=== PATIENT | female | born 1985 | race Caucasian/White ===

== ENCOUNTER 2017-02-15 22:56 | Emergency (ER) | payer MEDICAID ==
[~2017-02-15] VITALS: Ht 160 cm; Wt 63.3 kg
[~2017-02-15 22:56] MED LIST: ALBU1AER INH; IBUP800T23 PO; NAPR500 PO; ROBA750T3 PO
[2017-02-15 23:06] VITALS: BP 116/83; PULSE 95; RESP 18; TEMP 99; O2SAT 96
[2017-02-15 23:18] VITALS: BP 116/83; PULSE 95; RESP 18; O2SAT 99
[2017-02-15 23:22] VITALS: BP 109/65; PULSE 81; RESP 18; O2SAT 96
--- NOTE | 2017-02-16 01:12 | PD ---
HPI Chief Complaint: Facial Pain or Swelling Time Seen by Provider: 00:56 Travel History International Travel<30 days: No Contact w/Intl Traveler<30days: No Traveled to known affect area: No History of Present Illness HPI The patient is a 31-year-old female that states she has a "migraine" for 2 weeks. Most of her pain is on the right forehead and sinuses. The patient noted swelling on her right eyelid on the right side of her forehead last night. She denies any trauma the face or possibility of an insect bite. The patient has been self-medicating herself with [id number] Excedrin Migraine. She denies any history of drug abuse. The patient does smoke one half pack a day of cigarettes. PFSH Past Medical History Hx Anticoagulant Therapy: No Autoimmune Disease: No Blood Disorders: No Anxiety: Yes Depression: Yes (newly dx) Cancer: No Cardiovascular Problems: No Chemotherapy: No Cerebrovascular Accident: No Diabetes: No Diminished Hearing: No Endocrine: No Gastrointestinal Disorders: Yes GERD: Yes Glaucoma: No Genitourinary: No Hiatal Hernia: No Immune Disorder: No Kidney Stones: No Musculoskeletal: No Neurologic: No Psychiatric: No Reproductive: No Respiratory: No Immunizations Current: No Radiation Therapy: No Renal Failure: No Thyroid Disease: No Ulcer: Yes Tetanus Vaccination: Unknown Influenza Vaccination: No ?: Not LMP: Currently on cycle 02/15/2017 : 3 Para: 2 Miscarriage: 1 Past Surgical History Abdominal Surgery: No AICD: No Appendectomy: No Arteriovenous Shunt: No Cardiac Surgery: No Cholecystectomy: No Ear Surgery: No Endocrine Surgery: No Eye Surgery: No Genitourinary Surgery: No Gynecologic Surgery: No Insulin Pump: No Joint Replacement: No Neurologic Surgery: No Oral Surgery: No Pacemaker: No Thoracic Surgery: No Tonsillectomy: Yes Other Surgery: Yes (SKIN LEFT SHOULDER) Social History Alcohol Use: Yes (OCCASIONAL) Tobacco Use: Yes (1 PPD) Substance Use: No Allergies-Medications (Allergen,Severity, Reaction): Coded Allergies: No Known Allergies (Verified , 06/30/16) Reported Meds & Prescriptions Reported Meds & Active Scripts Active Augmentin (Amoxicillin-Clavulanate) 875-125 mg Tab 875 Mg PO BID not for use in CrCl <30 ml/min. Naprosyn (Naproxen) 500 Mg Tab 500 Mg PO BID 5 Days Robaxin-750 (Methocarbamol) 750 Mg Tab 750 Mg PO QID Ibuprofen 800 Mg Tab 800 Mg PO Q6H PRN Proair Hfa (Albuterol Sulfate) 8.5 Gm Aero 2 Puff INH Q4-6H PRN * SHAKE WELL BEFORE USE * Review of Systems Except as stated in HPI: all other systems reviewed are Neg Physical Exam Narrative GENERAL: The patient is alert, oriented 3 in moderate apparent distress with her right forehead pain. Her vital signs show temperature of 99 but otherwise normal. SKIN: Warm and dry. There is puffiness over the right frontal area and swelling of the right upper lid. No proptosis is present, this appears to be periorbital swelling. HEAD: Atraumatic. Normocephalic. EYES: Pupils equal and round. No scleral icterus. No injection or drainage. ENT: No nasal bleeding or discharge. Mucous membranes pink and moist. There is frontal NECK: Trachea midline. No JVD. There is some slightly enlarged and slightly tender lymph nodes along the anterior cervical chain on the right. CARDIOVASCULAR: Regular rate and rhythm. No murmur appreciated. RESPIRATORY: No accessory muscle use. Clear to auscultation. Breath sounds equal bilaterally. GASTROINTESTINAL: Abdomen soft, non-tender, nondistended. Hepatic and splenic margins not palpable. MUSCULOSKELETAL: No obvious deformities. No clubbing. No cyanosis. No edema. NEUROLOGICAL: Awake and alert. No obvious cranial nerve deficits. Motor grossly within normal limits. Normal speech. PSYCHIATRIC: Appropriate mood and affect; insight and judgment normal. Data Data Last Documented VS Vital Signs Date Time Temp Pulse Resp B/P Pulse Ox O2 Delivery O2 Flow Rate FiO2 02/15/17 23:22 81 18 109/65 96 Room Air 02/15/17 23:[address] Sinuses W/O Iv Contrast (02/16/17 ) Beta Hcg (Quant/Titer) (02/16/17 01:00) Complete Blood Count With Diff (02/16/17 01:00) Comprehensive Metabolic Panel (02/16/17 01:00) Urinalysis - C+S If Indicated (02/16/17 01:00) Iv Access Insert/Monitor (02/16/17 01:00) Lactic Acid Sepsis Protocol (02/16/17 01:00) Blood Culture (02/16/17 01:00) Ed Urine Pregnancytest Poc (02/16/17 01:39) Morphine Inj (Morphine Inj) (02/16/17 01:45) Ondansetron Inj (Zofran Inj) (02/16/17 01:45) Ceftriaxone Inj (Rocephin Inj) (02/16/17 03:15) Labs Laboratory Tests Test 02/16/17 02/16/17 01:20 01:30 Urine Color YELLOW Urine Turbidity CLEAR Urine pH 5.5 Urine Specific [place] 1.015 Urine Protein NEG mg/dL Urine Glucose (UA) NEG mg/dL Urine Ketones NEG mg/dL Urine Occult Blood NEG Urine Nitrite NEG Urine Bilirubin NEG Urine Leukocyte Esterase NEG Urine RBC 0-2 /hpf Urine WBC 0-2 /hpf Urine Squamous Epithelial 0-5 /hpf Cells Urine Bacteria NONE /hpf Microscopic Urinalysis Comment CULT NOT INDICATED White Blood Count 8.9 TH/MM3 Red Blood Count 4.17 MIL/MM3 Hemoglobin 12.7 GM/DL Hematocrit 38.6 % Mean Corpuscular Volume 92.5 FL Mean Corpuscular Hemoglobin 30.5 PG Mean Corpuscular Hemoglobin 32.9 % Concent Red Cell Distribution Width 13.7 % Platelet Count 316 TH/MM3 Mean Platelet Volume 8.1 FL Neutrophils (%) (Auto) 60.1 % Lymphocytes (%) (Auto) 30.7 % Monocytes (%) (Auto) 5.1 % Eosinophils (%) (Auto) 2.9 % Basophils (%) (Auto) 1.2 % Neutrophils # (Auto) 5.3 TH/MM3 Lymphocytes # (Auto) 2.7 TH/MM3 Monocytes # (Auto) 0.5 TH/MM3 Eosinophils # (Auto) 0.3 TH/MM3 Basophils # (Auto) 0.1 TH/MM3 CBC Comment DIFF FINAL Differential Comment Sodium Level 140 MEQ/L Potassium Level 3.9 MEQ/L Chloride Level 105 MEQ/L Carbon Dioxide Level 27.5 MEQ/L Anion Gap 8 MEQ/L Blood Urea Nitrogen 9 MG/DL Creatinine 0.68 MG/DL Estimat Glomerular Filtration 101 ML/MIN Rate Random Glucose 87 MG/DL Lactic Acid Level 0.9 mmol/L Calcium Level 8.9 MG/DL Total Bilirubin 0.2 MG/DL Aspartate Amino Transf 21 U/L (AST/SGOT) Alanine Aminotransferase 30 U/L (ALT/SGPT) Alkaline Phosphatase 80 U/L Total Protein 7.5 GM/DL Albumin 3.3 GM/DL Human Chorionic Gonadotropin, LESS THAN 1 Quant MIU/ML MDM Medical Decision Making Medical Screen Exam Complete: Yes Emergency Medical Condition: Yes Medical Record Reviewed: Yes Interpretation(s) The urine is normal and culture is not indicated. The complete metabolic profile shows an albumin of 3.3 but is otherwise normal. Lactic acid is normal. The beta-hCG is less than 1. The CBC is normal. Differential Diagnosis Acute sinusitis, sepsis, dental infection, ear infection, cellulitis Narrative Course There is no laboratory evidence for sepsis. There is no clinical evidence for a dental infection or ear infection. The patient has acute ethmoid sinusitis with the right sided opacity location which is complete on the ethmoid cells. Plan: The patient be given Rocephin here and a prescription for Augmentin. If she gets worse or not better, she should return to the emergency department for reevaluation. Diagnosis Primary Impression: Acute ethmoidal sinusitis Additional Instructions: In about 5 days you should get better from this. If you are no better after 5 days you should return to the emergency department for reevaluation. It would be better however if you would follow-up with your primary care physician next week. Scripts Amoxicillin-Clavulanate (Augmentin)875-125 mg [id number] Mg PO BID #28 TAB Ref 0 not for use in CrCl <30 ml/min. Prov:Isidoro Clark MD 02/16/17 Disposition: DISCHARGE HOME Condition: Stable Isidoro Clark MD Feb 16, 2017 01:11
[2017-02-16 01:41] LABS: BLOOD, URINE NEG (NEG); GLUCOSE,URINE NEG (NEG); KETONE, URINE NEG (NEG); NITRITE,URINE NEG (NEG); PH, URINE 5.5 (5.0-8.5)
[2017-02-16 01:44] LABS: AUTOMATED NEUTROPHIL # 5.3 TH/MM3 (1.8-7.7); BASOPHIL # 0.1 TH/MM3 (0-0.2); BASOPHIL % 1.2 % (0.0-2.0); EOSINOPHIL # 0.3 TH/MM3 (0-0.4); EOSINOPHIL % 2.9 % (0.0-4.0); HEMATOCRIT 38.6 % (35.0-46.0); LYMPH % 30.7 % (9.0-44.0); LYMPHOCYTE # 2.7 TH/MM3 (1.0-4.8); MEAN CELL VOLUME 92.5 FL (80.0-100.0); MEAN CORPUSCULAR HEMOGLOBIN 30.5 PG (27.0-34.0); MEAN CORPUSCULAR HGB CONC 32.9 % (32.0-36.0); MONO % 5.1 % (0.0-8.0); NEUT % 60.1 % (16.0-70.0); PLATELET COUNT 316 TH/MM3 (150-450); RED BLOOD COUNT 4.17 MIL/MM3 (4.00-5.30); RED CELL DISTRIBUTION WIDTH 13.7 % (11.6-17.2); WHITE BLOOD COUNT 8.9 TH/MM3 (4.0-11.0)
[2017-02-16 01:45] LABS: HEMO FLAGS DIFF FINAL
[2017-02-16] MEDS ORDERED: ONDANSETRON HCL 4 MG/2 ML VIAL IV ONE (01:45)
[2017-02-16] MEDS ORDERED: MORPHINE SULFATE 4 MG/ML INJ IV PUSH ONE (01:45)
[2017-02-16 01:51] LABS: COMMENT (UR) CULT NOT INDICATED; CULTURE IF INDICATED CULT NOT INDICATED; RBC, URINE 0-2 /hpf (0-3); SQUAMOUS EPITHELIAL CELL URINE 0-5 /hpf (0-5); URINE COLOR YELLOW (YELLW/STRAW); WBC, URINE 0-2 /hpf (0-5)
[2017-02-16 01:52] LABS: CHLORIDE 105 MEQ/L (98-107); POTASSIUM 3.9 MEQ/L (3.5-5.1); SODIUM (NA) 140 MEQ/L (136-145)
[2017-02-16 01:56] LABS: ANION GAP 8 MEQ/L (5-15); BICARBONATE 27.5 MEQ/L (21.0-32.0); BLOOD UREA NITROGEN 9 MG/DL (7-18)
[2017-02-16 01:59] LABS: ALT (GPT) 30 U/L (10-53); AST (GOT) 21 U/L (15-37); GLOMERULAR FILTRATION RATE 101 ML/MIN (>89)
[2017-02-16 02:01] LABS: TOTAL BILIRUBIN ADULT 0.2 MG/DL (0.2-1.0)
[2017-02-16 02:02] LABS: ALKALINE PHOSPHATASE 80 U/L (45-117)
[2017-02-16 02:04] LABS: BETA HCG QUANT LESS THAN 1 MIU/ML (0-5)
--- NOTE | 2017-02-16 02:56 | RADHPO ---
EXAM DATE/TIME: 02/16/2017 01:57 [facility] COMPARISON: No previous studies available for comparison. INDICATIONS : Right frontal and sinus pain for two weeks. Right eye swelling for one day. RADIATION DOSE: 25.29 CTDIvol (mGy) MEDICAL HISTORY : None SURGICAL HISTORY : None. ENCOUNTER: Initial ACUITY: 2 weeks PAIN SCORE: 7/10 LOCATION: Right facial TECHNIQUE: Volumetric scanning of the paranasal sinuses was performed. Using automated exposure control and adj ustment of the mA and/or kV according to patient size, radiation dose was kept as low as reasonably a chievable to obtain optimal diagnostic quality images. FINDINGS: MAXILLARY SINUSES: Normal. No significant mucosal thickening or fluid. Infundibula are patent. No anomalous inferior orbital ethmoid (Johnny) air cells. ETHMOID SINUSES: There is complete opacification of 2 anterior ethmoid air cells on the right. The remaining ethmoid a ir cells are clear. SPHENOID SINUSES: Normal. No significant mucosal thickening or fluid. Sphenoethmoidal recesses are patent. No bony d ehiscence. FRONTAL SINUSES: Normal. No significant mucosal thickening or fluid. Frontal recesses are patent. No anomalous fron leandra air cells. NASAL FOSSA: Normal. No septal perforation or deviation. No derek bullosa or paradoxical turbinates are identifie d. OTHER: There is periorbital and supraorbital soft tissue swelling on the right. This is without changes invo lving the retrocrural fat lobe. CONCLUSION: 1. Periorbital soft tissue swelling on the right. 2. Other than complete opacification of 2 small anterior ethmoid air cells on the right the sinuses a re clear. Pablo Mejias Jr., MD on February 16, 2017 at 2:52 Board Certified Radiologist. This report was verified electronically.
[2017-02-16] MEDS ORDERED: AUGM875T PO (03:09)
[2017-02-16] MEDS ORDERED: cefTRIAXone INJ 2,000 MG in SODIUM CHLORIDE 0.9% INJ 100 ML IV ONE (03:15)
[2017-02-16 04:36] VITALS: BP 132/77
== END 2017-02-16 04:38 | disposition home or self-care (01) ==
LOC: PHED 22:56
DX: J01.20 Acute ethmoidal sinusitis, unspecified (principal); F17.210 Nicotine dependence, cigarettes, uncomplicated
CPT/HCPCS: 70486; 80053; 81001; 83605; 84702; 84703; 85025; 87040; 96365; 96375; 99285; J0696; J2270; J2405

== ENCOUNTER 2017-12-04 18:20 | Emergency (ER) | payer MEDICAID ==
[~2017-12-04 18:20] MED LIST changes: +AUGM875T PO
[2017-12-04 19:16] VITALS: BP 133/60; PULSE 81; RESP 20; TEMP 97.8; O2SAT 99
[2017-12-04 19:30] LABS: BLOOD, URINE SMALL (NEG); GLUCOSE,URINE NEG (NEG); KETONE, URINE TRACE mg/dL (NEG); NITRITE,URINE POS (NEG); URINE LEUKOCYTE ESTERASE NEG (NEG)
[2017-12-04 19:35] LABS: BILIRUBIN, URINE NEG (NEG)
[2017-12-04 19:36] LABS: BACTERIA, URINE MANY /hpf; MUCUS URINE MOD /lpf (OCC); RBC, URINE 0-3 /hpf (0-3); SQUAMOUS EPITHELIAL CELL URINE > 8 /hpf (0-5); URINE COLOR YELLOW (YELLW/STRAW)
[2017-12-05] MEDS ORDERED: CEPH-460 PO (05:07)
--- NOTE | 2017-12-05 05:09 | PD ---
HPI Chief Complaint: Flank/Kidney Pain Time Seen by Provider: 22:00 Travel History International Travel<30 days: No Contact w/Intl Traveler<30days: No Traveled to known affect area: No History of Present Illness HPI Patient left without being examined by this MMikaylaD. I did not see the patient she eloped from the exam room prior to my evaluation PFSH Past Medical History Hx Anticoagulant Therapy: No Autoimmune Disease: No Blood Disorders: No Anxiety: Yes Depression: Yes Cardiovascular Problems: No Chemotherapy: No Cerebrovascular Accident: No Diabetes: No Diminished Hearing: No Endocrine: No Gastrointestinal Disorders: Yes GERD: Yes Glaucoma: No Genitourinary: No Hepatitis: Yes Hiatal Hernia: No Immune Disorder: No Kidney Stones: No Musculoskeletal: No Neurologic: No Psychiatric: No Reproductive: No Respiratory: No Immunizations Current: No Radiation Therapy: No Renal Failure: No Thyroid Disease: No Ulcer: Yes Tetanus Vaccination: Unknown Influenza Vaccination: No ?: LMP: " DONT GET THEM ANY MORE " : 4 Para: 2 Miscarriage: 1 Past Surgical History Abdominal Surgery: No Appendectomy: No Arteriovenous Shunt: No Cardiac Surgery: No Cholecystectomy: No Ear Surgery: No Endocrine Surgery: No Eye Surgery: No Genitourinary Surgery: No Gynecologic Surgery: No Insulin Pump: No Joint Replacement: No Neurologic Surgery: No Oral Surgery: No Pacemaker: No Thoracic Surgery: No Tonsillectomy: Yes Other Surgery: Yes (SKIN LEFT SHOULDER) Social History Alcohol Use: Yes (OCCASIONAL) Tobacco Use: Yes (1 PPD) Substance Use: No Allergies-Medications (Allergen,Severity, Reaction): Coded Allergies: No Known Allergies (Verified , 06/30/16) Reported Meds & Prescriptions Reported Meds & Active Scripts Active Keflex (Cephalexin) 500 Mg Cap 500 Mg PO Q8H Augmentin (Amoxicillin-Clavulanate) 875-125 mg Tab 875 Mg PO BID not for use in CrCl <30 ml/min. Naprosyn (Naproxen) 500 Mg Tab 500 Mg PO BID 5 Days Robaxin-750 (Methocarbamol) 750 Mg Tab 750 Mg PO QID Ibuprofen 800 Mg Tab 800 Mg PO Q6H PRN Proair Hfa (Albuterol Sulfate) 8.5 Gm Aero 2 Puff INH Q4-6H PRN * SHAKE WELL BEFORE USE * Review of Systems ROS Limitations: Other: (patient eloped from the exam room I did not examine her) Physical Exam Narrative I did not examine the patient she was not in the exam room when I entered she eloped from the exam room without notifying us Data Data Last Documented VS Vital Signs Date Time Temp Pulse Resp B/P (MAP) Pulse Ox O2 Delivery O2 Flow Rate FiO2 12/04/17 22:06 20 12/04/17 19:16 97.8 81 133/60 (84) 99 Orders Orders Urinalysis - C+S If Indicated (12/04/17 18:39) Ed Urine Pregnancytest Poc (12/04/17 18:39) Urine Culture (12/04/17 19:20) Labs Laboratory Tests Test 12/04/17 19:20 Urine Color YELLOW Urine Turbidity CLOUDY Urine pH 6.0 Urine Specific [place] 1.030 Urine Protein NEG mg/dL Urine Glucose (UA) NEG mg/dL Urine Ketones TRACE mg/dL Urine Occult Blood SMALL Urine Nitrite POS Urine Bilirubin NEG Urine Leukocyte Esterase NEG Urine RBC 0-3 /hpf Urine WBC 9-14 /hpf Urine Squamous Epithelial Cells > 8 /hpf Urine Bacteria MANY /hpf Urine Mucus MOD /lpf Microscopic Urinalysis Comment CULTURE INDICATED MDM Medical Decision Making Medical Screen Exam Complete: Yes Emergency Medical Condition: Yes Differential Diagnosis Unable to establish patient's differential she eloped from the exam room prior to my exam or history or history of present illness Narrative Course Patient eloped from the exam room while I was running a critical care cardiac code in the next room Diagnosis Primary Impression: LWBS Patient Instructions: General Instructions Departure Forms: Tests/Procedures Scripts Cephalexin (Keflex) 500 Mg Cap 500 MG PO Q8H for Infection, #21 CAP 0 Refills Prov: Maxim Clark MD 12/05/17 Disposition: 07 LEFT WITHOUT BEING SEEN Condition: Stable Maxim Clark MD Dec 05, 2017 05:09
== END 2017-12-04 22:25 | disposition left against medical advice (07) ==
LOC: PHED 18:20
DX: R10.9 Unspecified abdominal pain (principal); R82.71 Bacteriuria
CPT/HCPCS: 81001; 84703; 87077; 87086; 87186; 99281

== ENCOUNTER 2018-01-26 14:20 | Emergency (ER) | payer MEDICAID ==
[~2018-01-26] VITALS: Ht 162.6 cm; Wt 64.6 kg
[~2018-01-26 14:20] MED LIST changes: +CEPH-460 PO
[2018-01-26 14:39] VITALS: BP 109/55; PULSE 92; RESP 16; TEMP 98.3; O2SAT 96
[2018-01-26] MEDS ORDERED: SODIUM CHLOR 0.9% 1000 ML INJ 1,000 ML IV ONE (15:15)
[2018-01-26] MEDS ORDERED: SODIUM CHLORIDE 0.9% FLUSH 10 ML FLUSH IV FLUSH PRN (15:15)
[2018-01-26 15:17] LABS: BILIRUBIN, URINE NEG (NEG); BLOOD, URINE NEG (NEG); GLUCOSE,URINE NEG (NEG); KETONE, URINE TRACE mg/dL (NEG); NITRITE,URINE NEG (NEG); URINE COLOR YELLOW (YELLW/STRAW); URINE LEUKOCYTE ESTERASE NEG (NEG)
[2018-01-26 15:31] LABS: MUCUS URINE MANY /lpf (OCC)
--- NOTE | 2018-01-26 15:31 | PD ---
HPI Chief Complaint: Related Problem Time Seen by Provider: 14:49 Travel History International Travel<30 days: No Contact w/Intl Traveler<30days: No Traveled to known affect area: No History of Present Illness HPI Patient is a 32-year-old female presents emergency department for evaluation of abdominal cramping in the setting of of unknown gestational age. Patient states she was told she was when she was here in November but left without being seen. She states she does not normally have regular periods and does not know how far along she is. She has been taking her vitamins, has not established with an AUTOMOTIVE TIRE WORKER yet but has an appointment for next week. She continues to smoke during this . She states she is cutting down still having smoked. She thinks her pain is due to stress because her recently moved out. No nausea no vomiting no vaginal bleeding no vaginal discharge. She states the abdominal pain is typically lower quadrants but radiates throughout her entire abdomen. Pain for the past few days, constant, context and associated signs and symptoms as above PFSH Past Medical History Hx Anticoagulant Therapy: No Autoimmune Disease: No Blood Disorders: No Anxiety: Yes Depression: Yes Cardiovascular Problems: No Chemotherapy: No Cerebrovascular Accident: No Diabetes: No Diminished Hearing: No Endocrine: No Gastrointestinal Disorders: Yes GERD: Yes Glaucoma: No Genitourinary: No Hepatitis: Yes Hiatal Hernia: No Immune Disorder: No Kidney Stones: No Musculoskeletal: No Neurologic: No Psychiatric: No Reproductive: No Respiratory: No Immunizations Current: No Radiation Therapy: No Renal Failure: No Thyroid Disease: No Ulcer: Yes Tetanus Vaccination: > 5 Years Influenza Vaccination: No ?: LMP: unknown : 4 Para: 2 Miscarriage: 1 Past Surgical History Abdominal Surgery: No Appendectomy: No Arteriovenous Shunt: No Cardiac Surgery: No Cholecystectomy: No Ear Surgery: No Endocrine Surgery: No Eye Surgery: No Genitourinary Surgery: No Gynecologic Surgery: No Insulin Pump: No Joint Replacement: No Neurologic Surgery: No Oral Surgery: No Pacemaker: No Thoracic Surgery: No Tonsillectomy: Yes Other Surgery: Yes (SKIN LEFT SHOULDER- cyst removed) Social History Alcohol Use: Yes (OCCASIONAL) Tobacco Use: Yes (1 PPD) Substance Use: No Allergies-Medications (Allergen,Severity, Reaction): Coded Allergies: No Known Allergies (Verified Adverse Reaction, Unknown, 01/26/18) Reported Meds & Prescriptions Reported Meds & Active Scripts Active Macrobid (Nitrofurantoin Monohydrate Macrocrystals) 100 Mg Capsule 100 Mg PO BID 7 Days Metrogel Topical (Metronidazole Topical) 1 % Gel 1 Applic TOPICAL DAILY 7 Days Review of Systems Except as stated in HPI: all other systems reviewed are Neg Physical Exam Narrative GENERAL: Well-developed well-nourished in no obvious distress SKIN: Focused skin assessment warm/dry. HEAD: Atraumatic. Normocephalic. EYES: Pupils equal and round. No scleral icterus. No injection or drainage. ENT: No nasal bleeding or discharge. Mucous membranes pink and moist. NECK: Trachea midline. No JVD. CARDIOVASCULAR: Regular rate and rhythm. No murmur appreciated. RESPIRATORY: No accessory muscle use. Clear to auscultation. Breath sounds equal bilaterally. GASTROINTESTINAL: Abdomen soft, non-tender, gravid. No rebound no percussive tenderness. Hepatic and splenic margins not palpable. GENITOURINARY: Exam performed with female nurse steel crane operator present all times, scant discharge which is frothy and white, cervix has lumpy bumpy appearance to it but certainly is not strawberry cervix. OS IS closed, no lesions seen. MUSCULOSKELETAL: No obvious deformities. No clubbing. No cyanosis. No edema. NEUROLOGICAL: Awake and alert. No obvious cranial nerve deficits. Motor grossly within normal limits. Normal speech. PSYCHIATRIC: Appropriate mood and affect; insight and judgment normal. Data Data Last Documented VS Vital Signs Date Time Temp Pulse Resp B/P (MAP) Pulse Ox O2 Delivery O2 Flow Rate FiO2 01/26/18 14:39 98.3 92 16 109/55 (73) 96 Orders Orders Urinalysis - C+S If Indicated (01/26/18 14:50) Ed Urine Pregnancytest Poc (01/26/18 14:50) Ecg Monitoring (01/26/18 15:14) Sodium Chloride 0.9% Flush (Ns Flush) (01/26/18 15:15) Ed Poc Ultrasound (01/26/18 15:14) Sodium Chlor 0.9% 1000 Ml Inj (Ns 1000 M (01/26/18 15:15) Wet Prep Profile (01/26/18 15:14) Gc And Chlamydia Pcr (01/26/18 15:14) Acetaminophen (Tylenol) (01/26/18 15:45) Labs Laboratory Tests Test 01/26/18 15:00 01/26/18 15:38 Urine Color YELLOW Urine Turbidity SL CLOUDY Urine pH 5.0 Urine Specific [place] GREATER/EQUAL 1.030 Urine Protein NEG mg/dL Urine Glucose (UA) NEG mg/dL Urine Ketones TRACE mg/dL Urine Occult Blood NEG Urine Nitrite NEG Urine Bilirubin NEG Urine Urobilinogen 1.0 MG/DL Urine Leukocyte Esterase NEG Urine RBC 4-9 /hpf Urine WBC 6-8 /hpf Urine Squamous Epithelial Cells > 8 /hpf Urine Bacteria FEW /hpf Urine Mucus MANY /lpf Microscopic Urinalysis Comment CULT NOT INDICATED Clue Cells (Wet Prep) PRESENT Vaginal Trichomonas (Wet Prep) NONE SEEN Vaginal Yeast (Wet Prep) NONE SEEN MDM Medical Decision Making Medical Screen Exam Complete: Yes Emergency Medical Condition: Yes Differential Diagnosis Intrauterine , ectopic , round ligament pain, BV, CV, UTI, acute abdomen highly unlikely. Narrative Course Shortly after doing the patient's ultrasound she eloped from the emergency department without the results of her UA or her wet prep. Both of which were positive. I had nursing call her and instructed to return for scripts. They were able to reach her and she stated that she would come back. Otherwise on my assessment the patient is stable for outpatient workup. She was counseled during the exam to stop smoking as it has many adverse health effects for both her and the baby including premature , lung disease, failure to thrive in the , stroke heart attack and cancer in both her and the . Initially I did put him for some blood work for the patient but after examination of her abdomen and confirmation of intrauterine I do not see the utility in this patient with benign abdomen Procedures Procedure Narrative Bedside ultrasound: Bedside ultrasound of the uterus transabdominally shows a single intrauterine approximately 16 weeks 0 days gestational age by crown-rump length and biparietal diameter. Positive motion, heart tones by M-mode to 160 bpm. No gross deformity Diagnosis Primary Impression: UTI (urinary tract infection) Additional Impressions: Bacterial vaginosis Tobacco smoking affecting Med/Other Pt SpecificInfo: Prescription(s) given Scripts Nitrofurantoin Monohydrate Macrocrystals (Macrobid) 100 Mg Capsule 100 MG PO BID for Infection for 7 Days, #14 CAP 0 Refills Prov: Candido Sanches MD 3/4/18 Metronidazole Topical (Metrogel Topical) 1 % Gel 1 APPLIC TOPICAL DAILY for Infection for 7 Days, #1 TUBE 0 Refills Prov: Candido Sanches MD 01/26/18 Disposition: 01 DISCHARGE HOME (Eloped) Condition: Stable Candido Sanches MD Jan 26, 2018 15:31
[2018-01-26 15:33] LABS: BACTERIA, URINE FEW /hpf; SQUAMOUS EPITHELIAL CELL URINE > 8 /hpf (0-5)
[2018-01-26] MEDS ORDERED: ACETAMINOPHEN 325 MG TAB PO ONE (15:45)
[2018-01-26] MEDS ORDERED: METR1GEL TOPICAL (16:28)
[2018-01-26] MEDS ORDERED: MACR100C2 PO (16:28)
== END 2018-01-26 16:00 | disposition home or self-care (01) ==
LOC: PHED 14:20
DX: O23.42 Unspecified infection of urinary tract in pregnancy, second trimester (principal); O23.92 Unspecified genitourinary tract infection in pregnancy, second trimester; F17.210 Nicotine dependence, cigarettes, uncomplicated; Z3A.16 16 weeks gestation of pregnancy
CPT/HCPCS: 81001; 84703; 87210; 87491; 87591; 99283

== ENCOUNTER 2018-02-04 18:18 | Emergency (ER) | payer MEDICAID ==
[~2018-02-04] VITALS: Ht 162.6 cm; Wt 64.0 kg
[~2018-02-04 18:18] MED LIST changes: -ALBU1AER INH; -AUGM875T PO; -CEPH-460 PO; -IBUP800T23 PO; +MACR100C2 PO; +METR1GEL TOPICAL; -NAPR500 PO; -ROBA750T3 PO
[2018-02-04 18:23] VITALS: BP 104/58; PULSE 86; RESP 16; TEMP 98.5; O2SAT 95
[2018-02-04] MEDS ORDERED: LIDOCAINE HCL 1% 30 ML VIAL INFIL ONE (20:00)
[2018-02-04] MEDS ORDERED: LIDOCAINE HCL 1% 20 ML VIAL INFIL ONE (20:15)
--- NOTE | 2018-02-04 20:20 | PD ---
HPI Chief Complaint: Laceration/Skin Injury Time Seen by Provider: 19:51 Travel History International Travel<30 days: No Contact w/Intl Traveler<30days: No Traveled to known affect area: No History of Present Illness HPI 32-year-old female that presents to the ED for evaluation of laceration to her right fifth digit. Per patient this happened today. Per patient happened about 2 hours ago. Per patient she actually cut herself with a piece of glass that broke off. Able to move it fully. Denies any numbness, tilling, weakness. No prior injuries to this finger. No foreign body sensation. Pain per patient is 6 out of 10. Some bleeding noted. Up-to-date with vaccinations. Of note she is . PFSH Past Medical History Hx Anticoagulant Therapy: No Autoimmune Disease: No Blood Disorders: No Anxiety: Yes Depression: Yes Cardiovascular Problems: No Chemotherapy: No Cerebrovascular Accident: No Diabetes: No Diminished Hearing: No Endocrine: No Gastrointestinal Disorders: Yes GERD: Yes Glaucoma: No Genitourinary: No Hepatitis: Yes Hiatal Hernia: No Immune Disorder: No Kidney Stones: No Musculoskeletal: No Neurologic: No Psychiatric: No Reproductive: No Respiratory: No Immunizations Current: No Radiation Therapy: No Renal Failure: No Thyroid Disease: No Ulcer: Yes Tetanus Vaccination: Unknown Influenza Vaccination: No ?: : 4 Para: 2 Miscarriage: 1 Past Surgical History Abdominal Surgery: No Appendectomy: No Arteriovenous Shunt: No Cardiac Surgery: No Cholecystectomy: No Ear Surgery: No Endocrine Surgery: No Eye Surgery: No Genitourinary Surgery: No Gynecologic Surgery: No Insulin Pump: No Joint Replacement: No Neurologic Surgery: No Oral Surgery: No Pacemaker: No Thoracic Surgery: No Tonsillectomy: Yes Other Surgery: Yes (SKIN LEFT SHOULDER- cyst removed) Social History Alcohol Use: Yes (OCCASIONAL) Tobacco Use: Yes (1 PPD) Substance Use: No Allergies-Medications (Allergen,Severity, Reaction): Coded Allergies: No Known Allergies (Verified Adverse Reaction, Unknown, 02/04/18) Reported Meds & Prescriptions Reported Meds & Active Scripts Active Macrobid (Nitrofurantoin Monohydrate Macrocrystals) 100 Mg Capsule 100 Mg PO BID 7 Days Metrogel Topical (Metronidazole Topical) 1 % Gel 1 Applic TOPICAL DAILY 7 Days Review of Systems Except as stated in HPI: all other systems reviewed are Neg Physical Exam Narrative GENERAL: SKIN: Warm and dry. HEAD: Atraumatic. Normocephalic. EYES: Pupils equal and round. No scleral icterus. No injection or drainage. ENT: No nasal bleeding or discharge. Mucous membranes pink and moist. NECK: Trachea midline. No JVD. CARDIOVASCULAR: Regular rate and rhythm. RESPIRATORY: No accessory muscle use. Clear to auscultation. Breath sounds equal bilaterally. GASTROINTESTINAL: Abdomen soft, non-tender, nondistended. Hepatic and splenic margins not palpable. MUSCULOSKELETAL: Extremities without clubbing, cyanosis, or edema. No obvious deformities. Full range of motion of all digits of the right hand. Patient does have a superficial laceration of the right fifth digit. About 1 cm semicircular. Slightly tender to touch. Some bleeding noted. No foreign body noted. Laceration is to the lateral aspect of the right fifth digit. Around the MIP area but not on the joint itself. NEUROLOGICAL: Awake and alert. No obvious cranial nerve deficits. Motor grossly within normal limits. Five out of 5 muscle strength in the arms and legs. Normal speech. PSYCHIATRIC: Appropriate mood and affect; insight and judgment normal. Data Data Last Documented VS Vital Signs Date Time Temp Pulse Resp B/P (MAP) Pulse Ox O2 Delivery O2 Flow Rate FiO2 02/04/18 18:23 98.5 86 16 104/58 (73) 95 Orders Orders Lidocaine 1% Inj (Xylocaine 1% Inj) (02/04/18 20:15) Ed Discharge Order (02/04/18 20:18) [facility] Medical Decision Making Medical Screen Exam Complete: Yes Emergency Medical Condition: Yes Medical Record Reviewed: Yes Differential Diagnosis laceration vs skin abrasion vs skin tear Narrative Course 32-year-old female that presents to the ED for evaluation of laceration. Patient was properly examined and was found to have signs and symptoms consistent appears to be laceration to the right fifth digit. After explained procedure to the patient and she agreed to it laceration was repaired as stated in procedure note. Patient was told to get sutures removed in 14 days. Follow with PCP. Wound care was endorsed. See ED worsening symptoms. Procedures Procedure Narrative LACERATION LOCATION: right 5th digit LENGTH: 1 cm NUMBER OF STITCHES/AMBER: 5 sutures REPAIR: The area of the laceration was prepped with Betadine and sterilely draped. The laceration was infiltrated with 1% Xylocaine. The wound was copiously irrigated and explored without evidence of foreign body, tendon injury or neurovascular injury. The wound was closed using 4-0 Prolene. This was a 1 layer repair. A sterile dressing was applied. The patient was advised to keep the dressing clean and dry. Patient tolerated the procedure well. Diagnosis Primary Impression: Laceration of finger Qualified Codes: S61.216A - Laceration without foreign body of right little finger without damage to nail, initial encounter Patient Instructions: General Instructions Additional Instructions: Wound care daily with soap and water. You can apply bandaid if needed. Neosporyn or OTC antibiotic ointment to area as needed twice a day for at least 2 weeks to help with scarring and prevent infection. Meoderma OTC for scarring if needed. Avoid sun exposure for 2 months as the sun could make scar darker and more noticeable. Get sutures removed in 14 days. See ED if worst. Med/Other Pt SpecificInfo: Prescription(s) given Disposition: 01 DISCHARGE HOME Condition: Stable Sumit Edwards Feb 04, 2018 20:20
== END 2018-02-04 20:42 | disposition home or self-care (01) ==
LOC: PHED 18:18 → PHEFT 20:42
DX: S61.216A Laceration without foreign body of right little finger without damage to nail, initial encounter (principal); K21.9 Gastro-esophageal reflux disease without esophagitis; F17.210 Nicotine dependence, cigarettes, uncomplicated; W25.XXXA Contact with sharp glass, initial encounter
CPT/HCPCS: 12001

== ENCOUNTER 2018-03-20 16:57 | Emergency (ER) | payer MEDICAID ==
[2018-03-20 16:59] VITALS: BP 114/60; PULSE 94; RESP 20; TEMP 99.1; O2SAT 95
--- NOTE | 2018-03-20 17:21 | PD ---
HPI Chief Complaint: Housekeeper Problem/Complaint Time Seen by Provider: 17:19 Travel History International Travel<30 days: No Contact w/Intl Traveler<30days: No Traveled to known affect area: No History of Present Illness HPI 33-year-old female patient who is 23 weeks , presents to the ER today for several days history of lower abdominal discomfort which she currently rates at a 5 out of 10. She states that she has been having urinary frequency, has been nauseous but denies any recent vomiting. She denies any fevers or any other issues. She is supposed to get her official ultrasound next week. Modifying Factors: None Associated Signs & Symptoms:lower abdominal discomfort, urinary symptoms Risk Factors: PFSH Past Medical History Hx Anticoagulant Therapy: No Autoimmune Disease: No Blood Disorders: No Anxiety: Yes Depression: Yes Cardiovascular Problems: No Chemotherapy: No Cerebrovascular Accident: No Diabetes: No Diminished Hearing: No Endocrine: No Gastrointestinal Disorders: Yes GERD: Yes Glaucoma: No Genitourinary: No Hepatitis: Yes Hiatal Hernia: No Immune Disorder: No Kidney Stones: No Musculoskeletal: No Neurologic: No Psychiatric: No Reproductive: No Respiratory: No Immunizations Current: No Radiation Therapy: No Renal Failure: No Thyroid Disease: No Ulcer: Yes ?: : 4 Para: 2 Miscarriage: 1 Past Surgical History Abdominal Surgery: No Appendectomy: No Arteriovenous Shunt: No Cardiac Surgery: No Cholecystectomy: No Ear Surgery: No Endocrine Surgery: No Eye Surgery: No Genitourinary Surgery: No Gynecologic Surgery: No Insulin Pump: No Joint Replacement: No Neurologic Surgery: No Oral Surgery: No Pacemaker: No Thoracic Surgery: No Tonsillectomy: Yes Other Surgery: Yes (SKIN LEFT SHOULDER- cyst removed) Social History Alcohol Use: Yes (OCCASIONAL) Tobacco Use: Yes (1 PPD) Substance Use: No Allergies-Medications (Allergen,Severity, Reaction): Coded Allergies: No Known Allergies (Verified Adverse Reaction, Unknown, 03/20/18) Reported Meds & Prescriptions Reported Meds & Active Scripts Active Review of Systems Except as stated in HPI: all other systems reviewed are Neg Physical Exam Narrative GENERAL: Well-developed middle-aged f gravid emale patient currently in mild distress. Awake and oriented 3. SKIN: Focused skin assessment warm/dry. HEAD: Atraumatic. Normocephalic. EYES: Pupils equal and round. No scleral icterus. No injection or drainage. ENT: No nasal bleeding or discharge. Mucous membranes pink and moist. NECK: Trachea midline. No JVD. CARDIOVASCULAR: Regular rate and rhythm. No murmur appreciated. RESPIRATORY: No accessory muscle use. Clear to auscultation. Breath sounds equal bilaterally. GASTROINTESTINAL: Abdomen soft, gravid, uterine fundus at about the umbilicus level, non-tender, nondistended. Hepatic and splenic margins not palpable. MUSCULOSKELETAL: No obvious deformities. No clubbing. No cyanosis. No edema. NEUROLOGICAL: Awake and alert. No obvious cranial nerve deficits. Motor grossly within normal limits. Normal speech. PSYCHIATRIC: Appropriate mood and affect; insight and judgment normal. Data Data Last Documented VS Vital Signs Date Time Temp Pulse Resp B/P (MAP) Pulse Ox O2 Delivery O2 Flow Rate FiO2 03/20/18 16:59 99.1 94 20 114/60 (78) 95 Orders Orders Urinalysis - C+S If Indicated (03/20/18 17:11) Ed Discharge Order (03/20/18 17:59) Labs Laboratory Tests Test 03/20/18 17:20 Urine Color YELLOW Urine Turbidity CLEAR Urine pH 8.0 Urine Specific Grant 1.015 Urine Protein NEG mg/dL Urine Glucose (UA) NEG mg/dL Urine Ketones NEG mg/dL Urine Occult Blood NEG Urine Nitrite NEG Urine Bilirubin NEG Urine Urobilinogen 1.0 MG/DL Urine Leukocyte Esterase TRACE Urine RBC 0-3 /hpf Urine WBC 0-2 /hpf Urine Squamous Epithelial Cells 0-5 /hpf Urine Amorphous Sediment MOD Microscopic Urinalysis Comment CULT NOT INDICATED MDM Medical Decision Making Medical Screen Exam Complete: Yes Emergency Medical Condition: Yes Medical Record Reviewed: Yes Differential Diagnosis UTI versus abdominal pain in , round ligament stretching versus threatened AB Narrative Course Patient reports no unusual vaginal discharge or any bleeding. UA did not show significant UTI. Transabdominal ultrasound shows IUP with good heart tones and good movement. At this point, I have discussed findings with patient and she states that she just wanted to come to make sure that she did not have a UTI. I have offered to do further lab work although I think it is likely that this is related abdominal discomfort considering that the discomfort is more of a pelvic area. At this point, she states that she feels fine and would prefer to follow-up with her [facility] regarding this issue. She should return for any worsening in symptoms. The plan was discussed with her and she states understanding. Procedures Procedure Narrative Transabdominal ultrasound done by me shows active fetus with heart tones of 1 43 bpm. Diagnosis Primary Impression: Abdominal pain in Disposition: 01 DISCHARGE HOME Condition: Stable SoontharoCarey vogt MD Mar 20, 2018 17:21
[2018-03-20 17:27] LABS: BILIRUBIN, URINE NEG (NEG); BLOOD, URINE NEG (NEG); GLUCOSE,URINE NEG (NEG); KETONE, URINE NEG (NEG); NITRITE,URINE NEG (NEG); URINE COLOR YELLOW (YELLW/STRAW); URINE LEUKOCYTE ESTERASE TRACE (NEG)
[2018-03-20 17:43] LABS: AMORPHOUS SEDIMENT, URINE MOD; RBC, URINE 0-3 /hpf (0-3); SQUAMOUS EPITHELIAL CELL URINE 0-5 /hpf (0-5); WBC, URINE 0-2 /hpf (0-5)
== END 2018-03-20 18:17 | disposition home or self-care (01) ==
LOC: PHED 16:57
DX: O26.892 Other specified pregnancy related conditions, second trimester (principal); R10.30 Lower abdominal pain, unspecified; R35.0 Frequency of micturition; R11.0 Nausea; O99.342 Other mental disorders complicating pregnancy, second trimester; F41.9 Anxiety disorder, unspecified; F32.9 Major depressive disorder, single episode, unspecified; K21.9 Gastro-esophageal reflux disease without esophagitis; Z3A.23 23 weeks gestation of pregnancy
CPT/HCPCS: 81001; 99283

== ENCOUNTER 2018-07-10 14:31 | Inpatient (IN) ==
[2018-07-10] MEDS ORDERED: Lidocaine PF 1% Inj 5 ML Vial ONE (14:40)
[2018-07-10] MEDS ORDERED: Oxytocin 30 Units/500ml Premix 30 UNITS/500 ML BAG ONE (14:40)
[2018-07-10] MEDS ORDERED: fentaNYL Citrate Inj 100 MCG/2 ML Ampul ONE (14:54)
[2018-07-10] MEDS ORDERED: Witch Hazel 50%/Glyderin 12.5% 40 Pad Jar RECTAL PRN (15:05)
[2018-07-10] MEDS ORDERED: Benzocaine 20% Top Spray 60 ML Can TOPICAL PRN (15:05)
[2018-07-10] MEDS ORDERED: Bisacodyl 10 MG Supp RECTAL PRN (15:05)
[2018-07-10] MEDS ORDERED: Zolpidem Tartrate 5 MG Tablet PO PRN (15:05)
[2018-07-10] MEDS ORDERED: Acetaminophen 325 MG Tablet PO PRN (15:05)
[2018-07-10] MEDS ORDERED: Naloxone Inj 0.4 MG/ML Vial IV.PUSH PRN (15:05)
--- NOTE | 2018-07-10 15:12 | P.OBDELI ---
Weeks Gestation: 39 Active Labor Start Date: 07/10/18 Medical Induction of Labor: No Artificial Rupture of Membrane: No Anesthesia: None Episiotomy: none Vaginal Delivery: Normal, Spontaneous, Precipitous Presentation: Occiput anterior Nuchal Cord: None Delayed Cord Clamping (45 sec): Yes Placenta: Spontaneous delivery, Intact, 3 vessel cord Estimated blood loss (mL): 100 : Female Male A Delivery Date: 07/10/18 Delivery Time: 14:40 Weight: 3.28 kg score (1 min): 9 score (5 min): 9 Additional Information: Small labial laceration not bleeding no indication for suture.
[2018-07-10] MEDS ORDERED: Oxytocin 30 Units/500ml Premix 30 UNITS/500 ML BAG IV.CONT SCH (15:15)
--- NOTE | 2018-07-10 15:46 | P.HPOB ---
History of Present Illness Primary Care Physician: No Primary Care Physician History of Present Illness: 33 yr G 4 p 3002 at 39 gestation who was admitted after immediate and precipitous spontaneous vaginal delivery. She has been receiving care with Dr. Gusman. She reports no complications with this . Endorsed good movement. Patient reports that she began to have contractions last night that were spaced 15-20 minutes apart. She woke up this morning and continued to have contractions that became 5 minutes apart. She immediately called her doctor and was advised to drink water and rest. At 1 PM the patient reports rupture of membranes and immediately sought medical attention here at the hospital. Patient delivered shortly after arrival. Ob Hx: Induced at 38 weeks due to prior cardiac condition. PMHx: None Surgical Hx: Tonsillectomy and small removal of growth on back of neck Medications: vitamins FHx: None Social Hx: Patient lives with and 2 kids and is currently not working. Patient admits to smoking the beginning of the before she was she was but denies any alcohol or drug consumption. Allergies: No known allergies Weeks Gestation:: 39 - Inpatient Certification I certify that the inpatient services were ordered in accordance with Medicare regulations governing the order. This includes certification that hospital inpatient services are reasonable and necessary and in the case of services not specified as inpatient-only under 42 CFR 419.22(n), that they are appropriately provided as inpatient services in accordance to with the 2-midnight benchmark under 43 CFR 412.3(e) Estimated Total Length of Stay (Days): 2 Plans for Post Hospital Care: Home Review of Systems Constitutional: Denies chills, Denies fatigue, Denies fever(s), Denies headache( s), Denies dizziness, Denies recent illness Eyes: Denies change in vision, Denies double vision, Denies blurry vision Cardiovascular: Denies chest pain, Denies fast heart rate, Denies rapid, pounding, or irregular heartbeat, Denies shortness of breath Respiratory: Denies shortness of breath or wheezing Gastrointestinal: Endorses abdominal pain, Denies constipation, Denies loose stools, Denies nausea, Denies vomiting Genitourinary: Reports vaginal soreness after delivery. Denies difficulty starting urination, Denies difficulty urinating, Denies painful urination, Denies urinary frequency, Denies pelvic pain, Denies urinary incontinence, Denies blood in urine OB: Endorsed positive movement prior to delivery, rupture of membranes at 1 PM today Medications and Allergies Allergies Allergy/AdvReac Type Severity Reaction Status Date / Time No Known Allergies AdvReac Unknown Uncoded 03/20/18 17:37 Active Medications: Active Medications Acetaminophen (Tylenol) 650 mg PO Q4H PRN PRN Reason: PAIN SCALE 1 TO 2 Al Hydroxide/Mg Hydroxide (Milk Of Magnesia Liq) 30 ml PO Q12H PRN PRN Reason: Mild Constipation Benzocaine (Americaine 20% Top [place]) 1 spray TOPICAL Q4H PRN PRN Reason: For Perineum Discomfort Bisacodyl (Dulcolax Supp) 10 mg RECTAL DAILY PRN PRN Reason: SEVERE CONSITIPATION Diphtheria/Pertussis/Tetanus Vacc (Boostrix Vaccine Inj) 0.5 ml IM .ONCE ONE Stop: 07/10/18 16:01 Oxytocin (Pitocin 30 Units/Ns 500 Ml Premix) 30 units in 500 mls @ 100 mls/hr IV.CONT Q5H SUGEY Stop: 07/10/18 20:14 Ibuprofen (Motrin) 800 mg PO Q8H PRN PRN Reason: For cramping Lactulose (Lactulose Liq) 30 ml PO DAILY PRN PRN Reason: SEVERE CONSITIPATION Lidocaine HCl (Xylocaine 1% Inj) 0.1 ml I-DERMAL PRN PRN PRN Reason: For IV start Stop: 07/13/18 15:01 Measles/Mumps/Rubella Vaccine Live (M-M-R Ii Vaccine Inj) 0.5 ml SQ .ONCE ONE Stop: 07/10/18 16:01 Naloxone HCl (Narcan Inj) 0.1 mg IV.PUSH Q2M PRN PRN Reason: for opiate reversal Ondansetron HCl (Zofran Odt) 4 mg PO Q6H PRN PRN Reason: NAUSEA OR VOMITING Senna/Docusate Sodium (Lupe-Colace) 1 tab PO BID [facility] Sennosides (Senokot) 17.2 mg PO Q12H PRN PRN Reason: Moderate Constipation Sodium Chloride (Ns Flush) 2 ml IV.FLUSH BID [facility] Sodium Chloride (Ns Flush) 2 ml IV.FLUSH PRN PRN PRN Reason: FLUSH AFTER USING IV ACCESS Witch Rosangela/Glycerin (Tucks Pads) 1 applicatio RECTAL QID PRN PRN Reason: HEMORRHOIDS Zolpidem Tartrate (Ambien) 5 mg PO HS PRN PRN Reason: SLEEP Exam Vital signs: Vital Signs 07/10/18 14:42 07/10/18 14:45 07/10/18 15:02 Temperature 98.1 F Pulse Rate 82 96 H Respiratory Rate 18 Blood Pressure 137/70 130/77 07/10/18 15:13 07/10/18 15:15 Temperature Pulse Rate 69 Respiratory Rate 18 Blood Pressure 135/88 Narrative: Physical exam was accomplished after delivery due to immediate precipitous delivery on arrival to the hospital. GENERAL: Well-nourished, well-developed patient. SKIN: Warm and dry. HEAD: Normocephalic and atraumatic. EYES: No scleral icterus. No injection or drainage. CARDIOVASCULAR: Regular rate and rhythm without murmurs, gallops, or rubs. RESPIRATORY: Breath sounds equal bilaterally. No accessory muscle use. ABDOMEN/GI: Abdomen soft, tender, uterine fundus firm, bowel sounds present, no rebound, no guarding EXTREMITIES: No cyanosis or edema. BACK: Nontender without obvious deformity. No CVA tenderness. NEUROLOGICAL: Awake and alert. Moves all extremities without difficulty. Normal speech. Results - Labs CBC & Chem 7: 07/10/18 16:09 Caprini VTE Risk Assessment Caprini VTE Risk Assessment: No/Low Risk (score <= 1) Caprini Risk Assessment Model: Point Value = 1 Point Value = 2 Point Value = 3 Point Value = 5 Age 41-60 Minor surgery BMI > 25 kg/m2 Swollen legs Varicose veins or History of unexplained or recurrent spontaneous Oral contraceptives or hormone replacement Sepsis (< 1 month) Serious lung disease, including pneumonia (< 1 month) Abnormal pulmonary function Acute myocardial infarction Congestive heart failure (< 1 month) History of inflammatory bowel disease Medical patient at bed rest Age 61-74 Arthroscopic surgery Major open surgery (> 45 min) Laparoscopic surgery (> 45 min) Malignancy Confined to bed (> 72 hours) Immobilizing plaster cast Central venous access Age >= 75 History of VTE Family history of VTE Factor V Leiden Prothrombin [id number] Lupus anticoagulant Anticardiolipin antibodies Elevated serum homocysteine Heparin-induced thrombocytopenia Other congenital or acquired thrombophilia Stroke (< 1 month) Elective arthroplasty Hip, pelvis, or leg fracture Acute spinal cord injury (< 1 month) Prophylaxis Regimen: Total Risk Factor Score Risk Level Prophylaxis Regimen 0-1 Low Early ambulation 2 Moderate Order ONE of the following: *Sequential Compression Device (SCD) *Heparin 5000 units SQ BID 3-4 Higher Order ONE of the following medications: *Heparin 5000 units SQ TID *Enoxaparin/Lovenox 40 mg SQ daily (WT < 150 kg, CrCl > 30 mL/min) *Enoxaparin/Lovenox 30 mg SQ daily (WT < 150 kg, CrCl > 10-29 mL/min) *Enoxaparin/Lovenox 30 mg SQ BID (WT < 150 kg, CrCl > 30 mL/min) AND/OR *Sequential Compression Device (SCD) 5 or more Highest Order ONE of the following medications: *Heparin 5000 units SQ TID (Preferred with Epidurals) *Enoxaparin/Lovenox 40 mg SQ daily (WT < 150 kg, CrCl > 30 mL/min) *Enoxaparin/Lovenox 30 mg SQ daily (WT < 150 kg, CrCl > 10-29 mL/min) *Enoxaparin/Lovenox 30 mg SQ BID (WT < 150 kg, CrCl > 30 mL/min) AND *Sequential Compression Device (SCD) Assessment and Plan - Diagnosis (1) Precipitous delivery, delivered (current hospitalization) Code(s): O62.3 - Precipitate labor Status: Acute Plan: As stated per HPI patient went into labor this morning with rupture of memories at 1 PM. Patient delivered at 1430 without complications via spontaneous vaginal delivery. --AF VSS --Continue routine care --Motrin and Percocet when necessary for pain --Encourage OOB --Pelvic rest for 6 weeks will need follow-up appointment at that time. --Anticipate discharge tomorrow - Attending Attestation The exam, history, and the medical decision-making described in the above note were completed with the assistance of the resident physician. I reviewed and agree with the findings presented. I attest that I had a [id number] encounter with the patient on the same day, and personally performed and documented my assessment and findings in the medical record.
[2018-07-10] MEDS ORDERED: Diphtheria/Tetanus/Pertussis Vaccine Inj 0.5 ML Syringe IM ONE (16:00)
[2018-07-10] MEDS ORDERED: Measles/Mumps/Rubella Vaccine Inj 0.5 ML Vial SQ ONE (16:00)
[2018-07-10 16:31] LABS: Baso # (Auto) 0.1 th/mm3 (0.0-0.2); Baso % (Auto) 0.4 % (0.0-2.0); Eos # (Auto) 0.1 th/mm3 (0.0-0.4); Eos % (Auto) 0.3 % (0.0-4.0); Hematocrit 37.3 % (35.0-46.0); Hemoglobin 12.5 gm/dL (11.6-15.3); Lymph # (Auto) 1.2 th/mm3 (1.0-4.8); Lymph % (Auto) 6.8 % (9.0-44.0); Mean Corpuscular HGB Conc 33.6 % (32.0-36.0); Mean Corpuscular Hemoglobin 31.5 pg (27.0-34.0); Mean Corpuscular Volume 93.6 fL (80.0-100.0); Mean Platelet Volume 11.1 fL (7.0-11.0); Mono # (Auto) 0.5 th/mm3 (0.0-0.9); Mono % (Auto) 2.6 % (0.0-8.0); Neut # (Auto) 15.7 th/mm3 (1.8-7.7); Neut % (Auto) 89.9 % (16.0-70.0); Platelet Count 171 th/mm3 (150-450); Red Blood Count 3.98 mil/mm3 (4.00-5.30); Red Cell Distribution Width 13.1 % (11.6-17.2); White Blood Count 17.5 th/mm3 (4.0-11.0)
[2018-07-10] MEDS: Ibuprofen 400 MG Tablet PO PRN (16:34)
[2018-07-10] MEDS: Acetaminophen/Codeine 300/30 MG Tablet PO PRN (19:47)
[2018-07-10] MEDS: Senna/Docusate Sodium 8.6/50 MG Tablet PO SCH (20:04)
[2018-07-10 22:14] LABS: Amorphous Sediment,Urine Rare /hpf; Bacteria,Urine Occasional /hpf; Bilirubin,Urine Negative (Negative); Clarity,Urine Clear (Clear); Color,Urine Red (Yellw/Straw); Glucose,Urine (UA) Negative (Negative); Leukocyte Esterase,Urine Trace (Negative); Nitrite,Urine Negative (Negative); Specific Gravity,Urine 1.005 (1.002-1.035)
[2018-07-10 22:20] LABS: Amphetamine Urine With Conf Neg (Neg); Benzodiazepine Urine With Conf Neg (Neg)
[2018-07-11] MEDS: Acetaminophen/Codeine 300/30 MG Tablet PO PRN ×4 (00:05→12:39)
[2018-07-11] MEDS: Ibuprofen 400 MG Tablet PO PRN ×2 (00:06→08:31)
--- NOTE | 2018-07-11 09:51 | P.PNOB ---
Subjective Post day: 1 Interval history: day #1 AFVSS overnight. Decreased lochia. Denies dysuria. No breast tenderness.Appetite good. No nausea or vomiting. Positive flatus. Ambulating well. Denies calf pain or shortness of breath. Otherwise, she is doing well this morning and has no other complaints. Objective Vital Signs/I&O: Vital Signs 07/10/18 14:42 07/10/18 14:45 07/10/18 15:02 Temperature 98.1 F Pulse Rate 82 96 H Respiratory Rate 18 Blood Pressure 137/70 130/77 07/10/18 15:13 07/10/18 15:15 07/10/18 15:45 Temperature Pulse Rate 69 89 Respiratory Rate 18 18 Blood Pressure 135/88 118/58 L 07/10/18 16:28 07/10/18 20:00 07/11/18 07:54 Temperature 98.1 F 98.3 F 98.2 F Pulse Rate 79 83 66 Respiratory Rate 18 17 20 Blood Pressure 103/54 L 112/59 L 102/68 Result Diagrams: 07/10/18 16:09 Objective Remarks: GENERAL: Well-nourished, well-developed patient. CARDIOVASCULAR: Regular rate and rhythm without murmurs, gallops, or rubs. RESPIRATORY: Breath sounds equal bilaterally. No accessory muscle use. ABDOMEN/GI: Abdomen soft, non-tender. Fundus: Firm, non-tender at umbilicus. GENITOURINARY: Light to moderate bleeding. EXTREMITIES: No cyanosis or edema, non-tender, without signs of DVT. Medications and IVs: Active Medications Acetaminophen (Tylenol) 650 mg PO Q4H PRN PRN Reason: PAIN SCALE 1 TO 2 Acetaminophen/Codeine Phosphate (Tylenol W/Cod #3) 2 tab PO Q4H PRN PRN Reason: ABDOMINAL CRAMPING Last Admin: 07/11/18 08:32 Dose: 2 tab Al Hydroxide/Mg Hydroxide (Milk Of Magnesia Liq) 30 ml PO Q12H PRN PRN Reason: Mild Constipation Benzocaine (Americaine 20% Top [place]) 1 spray TOPICAL Q4H PRN PRN Reason: For Perineum Discomfort Last Admin: 07/10/18 19:51 Dose: 1 spray Bisacodyl (Dulcolax Supp) 10 mg RECTAL DAILY PRN PRN Reason: SEVERE CONSITIPATION Ibuprofen (Motrin) 800 mg PO Q8H PRN PRN Reason: For cramping Last Admin: 07/11/18 08:31 Dose: 800 mg Lactulose (Lactulose Liq) 30 ml PO DAILY PRN PRN Reason: SEVERE CONSITIPATION Lidocaine HCl (Xylocaine 1% Inj) 0.1 ml I-DERMAL PRN PRN PRN Reason: For IV start Stop: 07/13/18 15:01 Naloxone HCl (Narcan Inj) 0.1 mg IV.PUSH Q2M PRN PRN Reason: for opiate reversal Ondansetron HCl (Zofran Odt) 4 mg PO Q6H PRN PRN Reason: NAUSEA OR VOMITING Senna/Docusate Sodium (Lupe-Colace) 1 tab PO BID [facility] Last Admin: 07/10/18 20:04 Dose: 1 tab Sennosides (Senokot) 17.2 mg PO Q12H PRN PRN Reason: Moderate Constipation Sodium Chloride (Ns Flush) 2 ml IV.FLUSH BID [facility] Last Admin: 07/10/18 20:09 Dose: 2 ml Sodium Chloride (Ns Flush) 2 ml IV.FLUSH PRN PRN PRN Reason: FLUSH AFTER USING IV ACCESS Witch Rosangela/Glycerin (Tucks Pads) 1 applicatio RECTAL QID PRN PRN Reason: HEMORRHOIDS Last Admin: 07/10/18 19:52 Dose: 1 applicatio Zolpidem Tartrate (Ambien) 5 mg PO HS PRN PRN Reason: SLEEP Assessment and Plan - Diagnosis (1) Precipitous delivery, delivered (current hospitalization) Code(s): O62.3 - Precipitate labor Status: Acute Plan: 33y/o female who is PPD#1 s/p . -Continue routine care. -Motrin PRN pain. -Encouraged OOB. Advised pelvic rest for 6 wks. -Re: ctrl, she would like Depo-Provera. -D/c in 1-[address] Lin - Attending Attestation The exam, history, and the medical decision-making described in the above note were completed with the assistance of the resident physician. I reviewed and agree with the findings presented. I attest that I had a [id number] encounter with the patient on the same day, and personally performed and documented my assessment and findings in the medical record.
[2018-07-11] MEDS: Senna/Docusate Sodium 8.6/50 MG Tablet PO SCH (16:17)
[2018-07-11] MEDS ORDERED: medroxyPROGESTERone Acetate Inj 150 MG/ML Syringe IM ONE (17:00)
== END 2018-07-11 17:32 | disposition home or self-care (01) ==
LOC: HOBED 14:31 → H2E 14:35 → H1EA 14:35
PROVIDERS: ADMIT Obstetrics & Gynecology; ATTEND Obstetrics & Gynecology